=== PATIENT | female | born 1980 | race Caucasian/White ===

== ENCOUNTER 2025-03-19 07:33 | Outpatient (REF) | payer OTHER, SELFPAY ==
[2025-03-19 14:05] LABS: Resp Syncy Virus RNA Qual PCR NEGATIVE (Negative); SARS COV2 PCR INHOUSE NEGATIVE (Negative)
== END 2025-03-19 07:34 | disposition home or self-care (01) ==
LOC: HO.LAB 07:33
PROVIDERS: Visit Provider Physician Assistant
DX: H61.23 Impacted cerumen, bilateral (principal); J01.90 Acute sinusitis, unspecified; H92.01 Otalgia, right ear; R09.81 Nasal congestion
CPT/HCPCS: 69209; 87637

== ENCOUNTER 2025-03-19 07:33 | Outpatient (AMB) | payer OTHER, SELFPAY ==
--- OUTSIDE RECORDS SUMMARY | 2025-03-19 07:35 | XMS_ITS ---
Author Name [facility] Organization Unknown Care Team Organization Name Specialty Phone Email Start Date End Da te [facility] 03/19/2023 01/06/20 24
--- OUTSIDE RECORDS SUMMARY | 2025-03-19 07:35 | XMS_ITS | Clinical Summary ---
Author Organization [facility] Address [address] [place] [address] Phone Care Team Providers Care Maintenance And Operations Supervisor Name Role Phone Lela Treadwell MD Primary Care Pr ovider Allergies Active Allergy Reactions Criticality Noted Date Comments Apple 05/21/2017 Peels only, chest tightness Joseph 05/21/2017 Chest tightness Medications EPINEPHrine (EpiPen 2-Ha) 0.3 mg/0.3 mL injectionIndic ations:Angioed becca, sequela Inject 0.3 mL (0.3 mg total) into the thigh if needed for anaphylaxis. 1 each 1 07/21/19 25 Active loratadine (CLARITIN) 10 mg tabletIndicati ons:Perennial allergic rhinitis Take 1 tablet (10 mg total) by mouth 1 (one) time each day. 07/21/19 25 Active LORazepam (ATIVAN) 0.5 mg tablet Take 1 tablet 30 minutes prior to flying 2 tablet 02/27/20 25 Active norethindrone (AYGESTIN) 5 mg tablet TAKE 1 TABLET BY MOUTH DAILY. PLEASE DISPENSE 90 DAY SUPPLY 90 tablet 1 03/01/20 25 Active LORazepam (ATIVAN) 0.5 mg tablet Take 1 Tablet by mouth daily as needed for Anxiety (take one tablet 30 mins prior to flight). 07/17/19 24 025 Discontinued(Re order) norethindrone (AYGESTIN) 5 mg tablet TAKE 1 TABLET BY MOUTH DAILY. PLEASE DISPENSE 90 DAY SUPPLY 90 tablet 1 08/29/19 25 025 Discontinued Active Problems Problem Noted Date Diagnosed Date Overweight (BMI 25.0-29.9) 07/17/2023 Assessment & Plan (07/20/2024 8:28 AM EST): Advised to increase her exercise at least 30 minutes a day 5 days a week. Advised thaT in order to lose weight she needs to be in a caloric deficit. She will continue to eat a healthy diet and try to increase her exercise. Orders: Ambulatory referral to Sleep Medicine; Future Dysmenorrhea 08/24/2021 Overview (02/19/2024): Last Assessment & Plan: Resolved on Aygestin. Continue Anxiety with flying 05/26/2021 Overview (02/19/2024): Last Assessment & Plan: Given Rx for hydroxyzine and encouraged to take about an hour before her flight. She has enough for the ride home as well. Neck pain 02/07/2021 Angioedema 05/21/2017 Overview (02/19/2024): Associated with urticaria Assessment & Plan (07/20/2024 8:28 AM EST): She has never needed to use an EpiPen but it is good for her to have it on hand. Refill is provided Orders: EPINEPHrine (EpiPen 2-Ha) 0.3 mg/0.3 mL injection; Inject 0.3 mL (0.3 mg total) into the thigh if needed for anaphylaxis. 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 Encouraged MOM soaked cotton balls BID for symptomatic relief when inflamed. Migraine 09/19/2009 Resolved Problems Problem Noted Date Diagnosed Date Resolved Date Anxiety 10/14/2019 07/20/2024 Overview (02/19/2024): Last Assessment & Plan: I counseled Davida that continuing her Aygestin is not dangerous and that we can consider stopping it at 49 if she stays stable. May have some challenges with menopausal transition again in terms of mood sx, but we will await that time. She agrees. Acute urticaria 05/21/2017 07/20/2024 Overview (02/19/2024): Viral induced Encounters Date Type Department Care Team Description 02/26/2025 Telephone Adult Medicine [address] [phone] Lela Treadwell MD 02/18/2025 7:19 AM EDT - 02/18/2025 11:59 PM EDT Hospital Encounter Radiology Department [address] [phone] Encounter for screening mammogram for breast cancer Discharge Disposition: Home or Self Care 02/18/2025 Results Follow-Up Adult Medicine [address] [phone] Lela Treadwell MD from Last 3 Months Immunizations Immunization Administration Dates Next Due Hepatitis B (Oooemec-X-Yjsxh , Recombivax HB-Adult) 19yo and older 11/16/1997,07/21/1997,02/01/1997 Influenza Quadravalent, MDCK , 0.5ml, preservative free (Flucelvax) 6mo and older 02/21/2021,02/17/2019,02/21/2018,2016 Influenza Quadravalent, MDCK , 0.5ml, with preservative (Flucelvax) 6mo and older 03/29/2023,02/02/2020 Influenza trivalent, 0.5mL, preservative free (Fluarix; FluLaval; Fluzone) ages 6mo and older (Afluria) 3 years and older 01/31/2016,02/01/2015 Influenza trivalent, with preservative (Fluzone; Afluria) 6mo and older 02/09/2022,02/11/2014,02/06/2012 MMR, measles mumps and rubel la Live (Priorix; M-M-R II) 12mo and older 02/01/1997 PPD Test 02/01/1997 Mine SARS-CoV-2 COVID-19, mRNA, LNP-S, preservative free 02/09/2022 Td Tetanus diptheria (Tdvax) 7yo and older 08/17/2004 Tdap Tetanus diptheria acell ular pertussis (Boostrix; Adacel) 7yo and older 07/17/2023,06/03/2012 Surgical History Surgery Date Site/Laterality Comments SECTION PROCEDURE: [facility] DELIVERY ONLY; COMMENT: x1 TUBAL LIGATION PROCEDURE: HISTORICAL TUBAL LIGATION OTHER SURGICAL HISTORY PROCEDURE: [facility] CAUTERY CERVIX CRYOCAUTERY INITIAL/REPEAT SECTION, LOW TRANSVERSE 07/16/01 Medical History Medical History Date Comments Tobacco use disorder 04/04/2007 DX:Tobacco use disorder Historical Medical DX 09/19/2009 DX:Abnorma l Pap smear Migraine 09/19/2009 DX:Migraine Abnormal maternal glucose to lerance, antepartum 02/07/2006 DX:Abnormal maternal glucose tolerance, antepartum; COMMENT: in prenancy Other specified personal his tory presenting hazards to health(V15.89) 1997 DX:Other specifie d personal history presenting hazards to health(V15.89); COMMENT: cryo surgery Acute urticaria 05/21/2017 Viral induced Family History Medical History Relation Name Comments Other: not known Father Other cancer Maternal Grandfather unknown primary Cataracts Maternal Grandmother sariah on's disease Alcohol abuse Mother Nighat thyroid proble ms Testicular cancer Mother's side 1 1st cou sin Other: stomach cancer Mother's side 2 1st cousin (brother of the one with testicular CA) Breast cancer Neg Hx Colon cancer Neg Hx Ovarian cancer Neg Hx Pancreatic cancer Neg Hx Prostate cancer Neg Hx Uterine cancer Neg Hx Relation Name Status Comments Father Alive Maternal Grandfather Maternal Grandmother Mother Nighat Alive Mother's side 1 Mother's side 2 Uncle Social History Tobacco Use Types Packs/Day Years Used Date Smoking Tobacco: Former Cigarettes Q uit: 02/18/2008 Smokeless Tobacco: Never Alcohol Use Standard Drinks/Week Comments Yes 3 (1 standard drink = 0.6 oz pur e alcohol) Housing Instability Answer Date Recorde d Are you worried that in the next 2 months you may not have stable housing? No 07/19/2024 Food Access & Nutrition Answer Date Rec orded Do you have access to a vari ety of food including fruits and vegetables? Yes 07/19/2024 Access to Healthcare Answer Date Record ed Within the last 3 months, ho w many times did you visit the emergency department for your medical care? 0 07/19/2024 Health Literacy Answer Date Recorded How often do you need to hav e someone help you when you read instructions, pamphlets, or other written material from your doctor or pharmacy? Never 07/19/2024 Caregiver: How often do you need to have someone help you when you read instructions, pamphlets, or other written material from your doctor or pharmacy? Not on file 07/19/2024 Financial Risk Answer Date Recorded How hard is it for you to pa y for the very basics like food, housing, medical care, and air conditioning / heating? Somewhat hard 07/19/2024 Transportation Answer Date Recorded Has the lack of transportati on kept you from meetings, work, or from getting things needed for daily living? No Has the lack of transportati on kept you from medical appointments or from getting medications? No 07/19/2024 Social Isolation Answer Date Recorded How often do you feel lonely or isolated from th ose around you? Never 07/19/2024 Food Risk Answer Date Recorded Within the past 12 months we worried whether our food would run out before we got money to buy more. Never true 07/19/2024 Within the past 12 months th e food we bought just didn't last and we didn't have money to get more. Never true 07/19/2024 Dependent Care Answer Date Recorded Do you need help finding or paying for care for your loved ones. For example, child care giver or elderly care for an older adult? No 07/19/2024 Education Answer Date Recorded Do you think completing more education or training, like finishing a GED, going to college, or learning a trade, would be helpful for you? No 07/19/2024 Employment and Income Answer Date Recor ded During the last four weeks, have you been actively looking for work? No 07/19/2024 Living Situation Answer Date Recorded What is your living situation? Unrecognized valu e 07/19/2024 Interpersonal Safety Answer Date Record ed Physical Abuse Unrecognized value 03/30/2024 Verbal Abuse Unrecognized value 03/30/2024 Comments No Sex and Gender Information Value Date Recorded Sex Assigned at Not on file Legal Sex Female 3:31 PM EST Gender Identity Not on file Sexual Orientation Not on file Obstetrics History Para Term AB IAB SAB Ectopic Multiple Livin g Live Births 2 2 2 2 Date Outcome GA Total Labor Labor/2nd/3rd Weight Sex Type Anes PTL Ceci A1 A5 Name Clin Term Term Last Filed Vital Signs Vital Sign Reading Time Taken Comments Blood Pressure 111/72 07/20/2024 7:51 AM EST Pulse 79 07/20/2024 7:51 AM EST Temperature 35.9 C (96.7 F) 07/20/2024 7:51 AM EST Respiratory Rate 14 07/20/2024 7:51 AM EST Oxygen Saturation 98% 03/30/2024 2:18 PM EST Inhaled Oxygen Concentration - - Weight 81.2 kg (179 lb) 09/23/2024 8:01 AM EDT Height 165.1 cm (5' 5 ) 09/23/2024 8:01 AM EDT Body Mass Index 29.79 09/23/2024 8:01 AM EDT Plan of Treatment Upcoming Encounters Date Type Department Care Team (Late st Contact Info) Description 09/16/2025 9:00 AM EDT Office Visit Obstetrics and Gynecology - [address] [phone], [facility] [place] [address] Health Maintenance Due Date Last Done Comments HPV Vaccines (1 - 3-dose SCDM series) 2006 COVID-19 Vaccine ( season) 2025 03/29/2023, 02/09/2022, 04/23/2021, Additional history exists Social Influencers of Health Screening 07/19/2025 07/19/2024 Breast Cancer Screening 02/18/2027 02/19/20, 02/12/2024, 02/12/2024, Additional history exists Cervical Cancer Screening: HPV 07/18/2028 07/19/2023 Cholesterol Screening (Lipid Panel) 07/20/2029 07/20/2024, 07/19/2023, 07/19/2023 DTaP,Tdap,and Td Vaccines (4 - Td or Tdap) 07/17/2033 07/17/2023, 06/03/2012, 08/17/2004 Colorectal Cancer Screening: Colonoscopy 03/30/2034 03/30/2024 RSV Immunization Adult Patients (1 - 1-dose 75+ series) 2054 MMR Vaccines Completed 02/01/1997 Hepatitis B Vaccines Completed 11/16/1997, 07/21/1997, 02/01/1997 Hepatitis C Screening Completed 05/01/2007 HIV Screening Completed 06/08/2008 Depression Screening Completed 07/19/2024 Influenza Vaccine Completed 01/24/2025, , 03/29/2023, Additional history exists HIB Vaccines Aged Out No longer eligi ble based on patient's age to complete this topic Hepatitis A Vaccines Aged Out No long er eligible based on patient's age to complete this topic IPV Vaccines Aged Out No longer eligi ble based on patient's age to complete this topic Meningococcal ACWY Vaccine Aged Out N o longer eligible based on patient's age to complete this topic Meningococcal B Vaccine Aged Out No l onger eligible based on patient's age to complete this topic Pneumococcal Vaccine: Pediatrics (0 to 5 Years) and At-Risk Patients (6 to 49 Years) Aged Out No longer eligible based on patient's age to complete this topic RSV Immunization Patients Under 20 months Aged Out No longer eligible based on patient's age to complete this topic Varicella Vaccines Aged Out No longer eligible based on patient's age to complete this topic Procedures Procedure Name Priority Date/Time Associated Diagnosis Comments MG MAMMO DIGITAL SCREENING W JAE BILAT Routine 02/18/2025 7:44 AM EDT Encounter for screening mammogram for breast cancer LIPID PANEL WITH REFLEX TO DIRECT LDL Routine 07/20/2024 8:46 AM EST Screening for metabolic disorder COLONOSCOPY Routine 03/30/2024 1:57 PM EST Encounter for screening for malignant neoplasm of colon HPV Routine 07/19/2023 HIV SCREENING Routine 06/08/2008 HEPATITIS C SCREENING Routine 05/01/2007 from Last 3 Months or Most Recently Relevant to Health Maintenance Results * MG Mammo Digital Screening w Jae bilat (02/18/2025 7:44 AM EDT) Anatomical Region Laterality Modality Breast Bilateral Mammography 02/18/2025 2:21 PM EDT Impressions 02/18/2025 2:23 PM EDT Benign. BI-RADS CATEGORY: 1 - NEGATIVE RECOMMENDATION: Screening bilateral mammogram is recommended in 1 year. Mammo Location: [facility], [address] [place] [address], [id number], . -------- FINAL REPORT -------- Dictated By: Janis Mahmood Dictated Date: 02/18/2025 14:21 ET Assigned Physician: Janis Mahmood Reviewed and Electronically Signed By: Janis Mahmood Signed Date: 02/18/2025 14:23 ET Workstation ID: [id number] Transcribed By: Self Edit Transcribed Date: 02/18/2025 14:21 ET Narrative 02/18/2025 2:23 PM EDT CLINICAL: 44 years old, Female, routine annual exam. COMPARISON: Mammograms dating back to 03/31/2020 with most recent of 02/12/2024. TECHNIQUE: Bilateral MLO and CC views were obtained digitally with 3-D mammogram (digital breast tomosynthesis). Computer-aided detection was utilized in evaluation of this exam (CAD). FINDINGS: There is no evidence of suspicious mass or architectural distortion. No worrisome calcifications are evident. There has been no significant change from prior exam(s). BREAST DENSITY: C - The breasts are heterogeneously dense which may obscure small masses. Procedure Note Janis Mahmood MD - 02/18/2025 CLINICAL: 44 years old, Female, routine annual exam. COMPARISON: Mammograms dating back to 03/31/2020 with most recent of02/12/2024. TECHNIQUE: Bilateral MLO and CC views were obtained digitally with 3-Dmammogram (digital breast tomosynthesis). Computer-aided detection wasutilized in evaluation of this exam (CAD). FINDINGS: There is no evidence of suspicious mass or architectural distortion. Noworrisome calcifications are evident. There has been no significantchange from prior exam(s). BREAST DENSITY: C - The breasts are heterogeneously dense which mayobscure small masses. IMPRESSION: Benign. BI-RADS CATEGORY: 1 - NEGATIVE RECOMMENDATION: Screening bilateral mammogram is recommended in 1 year. Mammo Location: [facility], [address] [place] [address], [id number], . -------- FINAL REPORT -------- Dictated By: Janis Mahmood Dictated Date: 02/18/2025 14:21 ET Assigned Physician: Janis Mahmood Reviewed and Electronically Signed By: Janis Mahmood Signed Date: 02/18/2025 14:23 ET Workstation ID: [id number] Transcribed By: Self Edit Transcribed Date: 02/18/2025 14:21 ET Lela Treadwell MD IMG BI PROCEDURE S Final Result * Lipid panel with reflex to direct LDL (07/20/2024 8:46 AM EST) Cholesterol 134 0 - 200 mg/dL LAB CHEMISTRY METHOD 07/20/2024 1:04 PM [facility] Triglycerides 102 0 - 150 mg/dL LAB CHEMISTRY METHOD 07/20/2024 1:04 PM [facility] HDL 42 >=40 mg/dL LAB CHEMISTRY METHOD 07/20/2024 1:04 PM [facility] LDL Calculated 72 0 - 100 mg/dL LAB CHEMISTRY METHOD 07/20/2024 1:04 PM [facility] VLDL Cholesterol James 20.4 mg/dL LAB CHEMISTRY METHOD 07/20/2024 1:04 PM EST [facility] Non HDL Chol. (LDL+VLDL) 92 <145 mg/dL LAB CHEMISTRY METHOD 07/20/2024 1:04 PM EST [facility] Chol/HDL Ratio 3.2 0.0 - 4.4 LAB CHEMISTRY METHOD 07/20/2024 1:04 PM EST [facility] Blood Venous blood specimen / Unknown Venipuncture / Unknown 07/20/2024 8:46 AM EST 07/20/2024 8:46 AM EST Lela Treadwell MD LAB BLOOD ORDERA BLES Final Result Performing Organization Address City/State/[facility] Co de Phone Number [facility] [address] [place] [address], * COLONOSCOPY Anesthesia - MAC; [facility] ENDOSCOPY (03/30/2024 1:57 PM EST) Anatomical Region Laterality Modality Endoscopy 03/30/2024 1:46 PM EST Narrative 03/30/2024 2:[address] [facility] Patient Name: Davida Deshpande Procedure Date: 03/30/2024 1:46 PM Date of : 1980 Age: 44 Gender: Female Note Status: Finalized Attending MD: Connor Etienne MD, Procedure Date No Time: 03/30/2024 Procedure: Colonoscopy Indications: Screening for colorectal malignant neoplasm Providers: Connor Etienne MD Referring MD: Connor Etienne MD Medicines: Propofol per Anesthesia Complications: No immediate complications. Estimated Blood Loss: Estimated blood loss: none. Procedure: Pre-Anesthesia Assessment: - Prior to the procedure, a History and Physical was performed, and patient medications and allergies were reviewed. The patient is competent. The risks and benefits of the procedure and the sedation options and risks were discussed with the patient. All questions were answered and informed consent was obtained. Patient identification and proposed procedure were verified by the physician, the nurse, the manager mountain and the filter changing technician in the pre-procedure area in the endoscopy suite. Mental Status Examination: normal. Airway Examination: normal oropharyngeal airway and neck mobility. Respiratory Examination: clear to auscultation. CV Examination: normal. Prophylactic Antibiotics: The patient does not require prophylactic antibiotics. Prior Anticoagulants: The patient has taken no anticoagulant or antiplatelet agents. ASA Grade Assessment: II - A patient with mild systemic disease. After reviewing the risks and benefits, the patient was deemed in satisfactory condition to undergo the procedure. The anesthesia plan was to use monitored anesthesia care (MAC). Immediately prior to administration of medications, the patient was re-assessed for adequacy to receive sedatives. The heart rate, respiratory rate, oxygen saturations, blood pressure, adequacy of pulmonary ventilation, and response to care were monitored throughout the procedure. The physical status of the patient was re-assessed after the procedure. After I obtained informed consent, the scope was passed under direct vision. Throughout the procedure, the patient's blood pressure, pulse, and oxygen saturations were monitored continuously. The Colonoscope was introduced through the anus and advanced to the cecum, identified by appendiceal orifice and ileocecal valve. The colonoscopy was performed without difficulty. The patient tolerated the procedure well. The quality of the bowel preparation was excellent. Findings: The perianal and digital rectal examinations were normal. A medium post hemorrhoidectomy scar was found in the rectum. The scar tissue was healthy in appearance. Internal hemorrhoids were found during retroflexion. The hemorrhoids were Grade I (internal hemorrhoids that do not prolapse) and Grade II (internal hemorrhoids that prolapse but reduce spontaneously). The exam was otherwise without abnormality. Impression: - Internal hemorrhoids. - The examination was otherwise normal. - No specimens collected. Recommendation: - Discharge patient to home. - Repeat colonoscopy in 10 years for screening purposes. Procedure Code(s): --- Professional --- G0121, Colorectal cancer screening; colonoscopy on individual not meeting criteria for high risk Diagnosis Code(s): --- Professional --- Z12.11, Encounter for screening for malignant neoplasm of colon CPT copyright 2020 [employer]. All rights reserved. The codes documented in this report are preliminary and upon diesel tractor operator review may be revised to meet current compliance requirements. Connor Etienne MD Connor Etienne MD 03/30/2024 1:59:46 PM This report has been signed electronically.Connor Etienne MD Number of Addenda: 0 Note Initiated On: 03/30/2024 1:46 PM Scope Withdrawal Time: 0 hours 4 minutes 5 seconds Scope In: 1:50:17 PM Scope Out: 1:57:13 PM Endoscopy Department at [facility] - [address] [place] [id number] Procedure Note Connor Etienne MD - 03/30/2024 [facility] GI Patient Name: Davida Deshpande Procedure Date: 03/30/2024 1:46 PM Date of : 1980 Age: 44 Gender: Female Note Status: Finalized Attending MD: Connor Etienne MD, Procedure Date No Time: 03/30/2024 Procedure: Colonoscopy Indications: Screening for colorectal malignant neoplasm Providers: Connor Etienne MD Referring MD: Connor Etienne MD Medicines: Propofol per Anesthesia Complications: No immediate complications. Estimated Blood Loss: Estimated blood loss: none. Procedure: Pre-Anesthesia Assessment: - Prior to the procedure, a History and Physicalwas performed, and patient medications and allergieswere reviewed. The patient is competent. The risks and benefits of the procedure and the sedation optionsand risks were discussed with the patient. Allquestions were answered and informed consent was obtained. Patient identification and proposed procedure were verified by the physician, the nurse, theanesthetist and the filter changing technician in the pre-procedure area in the endoscopy suite. Mental Status Examination: normal. Airway Examination: normal oropharyngeal airway and neck mobility. Respiratory Examination: clear to auscultation. CV Examination: normal. Prophylactic Antibiotics: The patient does not requireprophylactic antibiotics. Prior Anticoagulants: The patient has taken no anticoagulant or antiplatelet agents. ASA Grade Assessment: II - A patient with mild systemic disease. After reviewing the risks and benefits,the patient was deemed in satisfactory condition to undergo the procedure. The anesthesia plan was touse monitored anesthesia care (MAC). Immediately priorto administration of medications, the patient was re-assessed for adequacy to receive sedatives. The heart rate, respiratory rate, oxygen saturations, blood pressure, adequacy of pulmonary ventilation,and response to care were monitored throughout the procedure. The physical status of the patient was re-assessed after the procedure. After I obtained informed consent, the scope was passed under direct vision. Throughout theprocedure, the patient's blood pressure, pulse, and oxygen saturations were monitored continuously. The Colonoscope was introduced through the anus and advanced to the cecum, identified by appendiceal orifice and ileocecal valve. The colonoscopy was performed without difficulty. The patient tolerated the procedure well. The quality of the bowel preparation was excellent. Findings: The perianal and digital rectal examinations were normal. A medium post hemorrhoidectomy scar was found inthe rectum. The scar tissue was healthy inappearance. Internal hemorrhoids were found duringretroflexion. The hemorrhoids were Grade I (internal hemorrhoids that do not prolapse) and Grade II (internal hemorrhoids that prolapse but reducespontaneously). The exam was otherwise without abnormality. Impression: - Internal hemorrhoids. - The examination was otherwise normal. - No specimens collected. Recommendation: - Discharge patient to home. - Repeat colonoscopy in 10 years for screening purposes. Procedure Code(s): --- Professional --- G0121, Colorectal cancer screening; colonoscopy on individual not meeting criteria for high risk Diagnosis Code(s): --- Professional --- Z12.11, Encounter for screening for malignantneoplasm of colon CPT copyright 2020 [employer]. All rights reserved. The codes documented in this report are preliminary and upon diesel tractor operator reviewmay be revised to meet current compliance requirements. Connor Etienne MD Connor Etienne MD 03/30/2024 1:59:46 PM This report has been signed electronically.Connor Etienne MD Number of Addenda: 0 Note Initiated On: 03/30/2024 1:46 PM Scope Withdrawal Time: 0 hours 4 minutes 5 seconds Scope In: 1:50:17 PM Scope Out: 1:57:13 PM Endoscopy Department at [address] [phone] Connor Etienne MD GI~PROCEDURE ORDERABLES Fin al Result * Cervical Cancer Screening: HPV (07/19/2023) Pathologist [facility] Cervical Cancer Screening: HPV Abstracted, negative [facility] [facility] Provider HEALTH MAINTENANCE Final Result * HIV Screening (06/08/2008) [facility] HIV Screening Abstracted [facility] Provider HEALTH MAINTENANCE Final Result * Hepatitis C Screening (05/01/2007) [facility] Hepatitis C Screening Abstracted Result [facility] Historical [facility] Final Result from Last 3 Months or Most Recently Relevant to Health Maintenance Insurance * Guarantor: Davida Deshpande Account Type Relation to Patient Date of Phone Billing Address Personal/Family Self 1980 [phone] (Work) [address] [address] [employer] Care Teams Maintenance And Operations Supervisor Relationship Specialty Start Date End Date Lela Treadwell MD [address] [place] [address] [phone] PCP - General 02/07/23
--- OUTSIDE RECORDS SUMMARY | 2025-03-19 07:35 | XMS_ITS | Encounter Summary ---
Author Organization [facility] Address [address] [place] [address] Care Team Providers Care Transportation Operations Manager Name Role Phone Lela Treadwell MD Primary Care Pr ovider Encounter Details Date Type Department Care Team ([facility] st Contact Info) Description 02/18/2025 Results Follow-Up Adult Medicine [address] [phone] Lela Treadwell MD [address] [place] [address] Social History Tobacco Use Types Packs/Day Years [...] for your loved ones. 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 [...] on file Sexual Orientation Not on file documented as of this encounter Plan of Treatment Upcoming Encounters Date Type Department Care Team ([facility] st Contact Info) Description 09/16/2025 9:00 AM EDT Office Visit Obstetrics and Gynecology [address] [phone] CNM [address] [place], [place] documented as of this encounter Visit Diagnoses Not on filedocumented in this encounter Additional Health Concerns Assessment Noted Time PHQ-9 Depression Total Score: 0 07/20/19 25 8:56 AM EST documented as of this encounter Care Teams Transportation Operations Manager Relationship Specialty Start Date End Date Lela Treadwell MD [address] [place] [address] PCP - General 02/07/23 documented as of this encounter
--- NOTE | 2025-03-19 07:37 | MHC.OFFWIV ---
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 Patient denies having any fevers or chills but did have a sore throat on Saturday which has now resolved. The patient took a COVID test on Saturday which was negative. The patient has not taken any medication for treatment of her symptoms. Review of Systems Const All systems reviewed & are unremarkable except as noted in HPI and below Denies body aches, Denies chills, Reports fatigue and Denies fever(s) Eyes Reports no additional complaints ENT Reports otalgia (right), Denies tinnitus, Denies sinus pain, Reports sinus pressure and Reports sore throat (resolved) Card Reports no additional complaints Resp Reports no additional complaints GI Reports no additional complaints, Denies nausea and Denies vomiting Reports no additional complaints Musc Reports no additional complaints Skin/Breast Reports system reviewed and no additional complaints, except as documented Neuro Reports no additional complaints Psych Reports no additional complaints Endo Reports fatigue Physical Exam Vital Signs: Last Vital Signs Temp 98.3 F 03/19/25 07:38 Pulse 101 H 03/19/25 07:38 BP 112/76 03/19/25 07:38 Pulse Ox 98 03/19/25 07:38 Oxygen Delivery Method Room Air 03/19/25 07:38 BMI result Body Mass Index 26.6 HEENT Head: Yes normal to inspection and Yes normocephalic Ears: TM's abnormal bilaterally (TMs occluded by cerumen bilaterally) General nose exam: Normal external nose present Face and sinus: Yes normal facial exam, Yes sinuses nontender and No edema Mouth: Normal oral and palatal mucosa present, oropharynx normal, moist mucous membranes and breath no malodorous Throat: Yes posterior oropharynx normal Neck Lymphatic: no lymphadenopathy noted Resp Effort & Inspection: normal respiratory effort Auscultation: clear to auscultation bilaterally Cardio Rate: regular rate (HR 92bpm) Rhythm: regular rhythm Skin General skin exam: no rashes or lesions noted Psych Appearance: grossly normal Mental Status: mental status grossly normal Insight: Good insight present (Psych) Judgement: Good judgement present (Psych) Office Procedures Cerumen Removal From which ear canal was the cerumen removed: bilateral Removal: irrigation Notes: patient tolerated procedure well 33869-Chv Irrigation/Lavage Assessment & Plan Assessment & Plan (1) Otalgia, right ear: Comment: Following cerumen removal, ears are clear bilaterally and there is no evidence of a bacterial otitis. Given this patient's recent travel a SARS panel is initiated. Results are pending at this time. Code(s): H92.01 - Otalgia, right ear Plan: Ibuprofen or Tylenol as needed for discomfort, increase clear fluids daily, SARS panel results are pending. Orders: Orders SARS-CoV2/FLU/RSV Today J01.90 - Acute sinusitis, unspecified Coding Level of Care Code Est Pt Level 3 (95433) Diagnoses Otalgia, right ear H92.01 CPT Codes Office Procedure - CPT: 75251-Uxs Irrigation/Lavage ([id number]) Time Spent (min) 25
[2025-03-19 07:38] VITALS: BP 112/76; PULSE 101; TEMP 36.8; O2SAT 98; BMI 26.6
== END 2025-03-19 08:23 | disposition home or self-care (01) ==
PROVIDERS: Visit Provider Physician Assistant
DX: H92.01 Otalgia, right ear (principal); J01.90 Acute sinusitis, unspecified; H61.23 Impacted cerumen, bilateral